=== PATIENT | female | born 1960 ===

== ENCOUNTER 2021-07-18 08:04 | Outpatient (CLI) | payer OTHER ==
[2021-07-18 20:01] LABS: SARS-CoV-2 PCR by NAA Not Detected (NotDetected)
== END 2021-07-18 08:05 | disposition home or self-care (01) ==
LOC: CSHLAB 08:04
PROVIDERS: ATTEND Internal Medicine Gastroenterology
DX: Z20.822 Contact with and (suspected) exposure to COVID-19 (principal); Z12.11 Encounter for screening for malignant neoplasm of colon
CPT/HCPCS: U0003; U0005

== ENCOUNTER 2021-07-21 08:24 | Day surgery (SDC) | payer OTHER ==
[2021-07-19 13:48] VITALS: BMI 24.7
[2021-07-21] MEDS ORDERED: PROPOFOL 40 ML ONE (08:44)
[2021-07-21] MEDS ORDERED: Lidocaine 1% MPF 2 ML VIAL ONE (08:48)
[2021-07-21] MEDS ORDERED: PHENYLEPHRINE-NS 100 MCG/ML 10 ML SYRINGE ONE ×2 (09:31)
== END 2021-07-21 10:04 | disposition home or self-care (01) ==
LOC: CSHSDC 08:24
PROVIDERS: ATTEND Internal Medicine Gastroenterology
PROC: 0DJD8ZZ Inspection of Lower Intestinal Tract, Via Natural or Artificial Opening Endoscopic (ICD-10-PCS; principal; 2021-07-21)
DX: Z12.11 Encounter for screening for malignant neoplasm of colon (principal); K62.89 Other specified diseases of anus and rectum; E11.9 Type 2 diabetes mellitus without complications; E78.5 Hyperlipidemia, unspecified; Z90.710 Acquired absence of both cervix and uterus
CPT/HCPCS: J2704